=== PATIENT | female | born 1990 ===

== ENCOUNTER 2018-07-26 05:30 | Inpatient (IN) | payer BC ==
[2018-07-26] MEDS ORDERED: Butorphanol Tartrate 1 MG/ML VIAL SLOW IVP PRN (05:55)
[2018-07-26] MEDS ORDERED: Lactated Ringer's 1,000 ML IV SCH (05:55)
[2018-07-26] MEDS ORDERED: Ondansetron HCl/PF 4 MG/2 ML Vial IVP PRN ×2 (05:55→15:14)
[2018-07-26] MEDS ORDERED: Promethazine HCl 25 MG/ML VIAL IM PRN ×2 (05:55→15:14)
[2018-07-26] MEDS ORDERED: Acetaminophen 500 MG TAB PO PRN (05:55)
[2018-07-26] MEDS ORDERED: Penicillin G Potassium 5 MILL.UNITS in Sodium Chloride 0.9% 100 ML IVPB SCH (06:00)
[2018-07-26] MEDS: Lactated Ringer's 1,000 ML IV SCH ×3 (06:08→22:43)
[2018-07-26 06:17] LABS: Hemoglobin 12.4 g/dL (12.0-16.0); Mean Corpuscular HGB CONC 36.3 g/dL (32.0-36.0); Mean Corpuscular Hemoglobin 31.9 pg (27.0-31.0); Mean Platelet Volume 8.9 fL (7.4-10.4); Platelet Count 149 thou/uL (130-400); Red Blood Cell (RBC) Count 3.89 mill/uL (4.20-5.40); White Blood Cell (WBC) Count 7.8 thou/uL (4.8-10.8)
[2018-07-26] MEDS: NS w/ Oxytocin 10 units 500 ML IVPB SCH ×2 (06:22→21:00)
[2018-07-26 06:57] LABS: HBSAg Index 0.19 S/CO (0-0.99); Hep B Surf Ag Non-Reactive S/CO (NonReactive); Syphilis Antibody Nonreactive (Nonreactive); Syphilis Antibody Index 0.04 S/CO (<1.00 Non-Reactive)
[2018-07-26] MEDS: Penicillin G 2.5 MILL.units 50 ML IVPB SCH ×4 (10:19→22:43)
[2018-07-26] MEDS ORDERED: Bupivacaine 0.5% 20 ML, fentaNYL Citrate/PF 400 MCG in Sodium Chloride 0.9% 72 ML EPIDURAL SCH (14:30)
[2018-07-26] MEDS ORDERED: DISCONTINUE ALL PREVIOUS NARCOTICS FS SCH (14:30)
[2018-07-26] MEDS ORDERED: Fentanyl 100 MCG/2 ML VIAL ONE (14:51)
[2018-07-26] MEDS ORDERED: Naloxone HCl 0.4 mg/ml Vial IVP PRN ×2 (15:14)
[2018-07-26] MEDS ORDERED: Acetaminophen 325 MG TAB PO PRN (15:14)
[2018-07-26] MEDS ORDERED: Eucerin (Mineral Oil/Petrolatum,White) 30 gm Jar TOP PRN (15:14)
[2018-07-26] MEDS ORDERED: diphenhydrAMINE 50 MG/ML VIAL IVP PRN (15:14)
[2018-07-26] MEDS ORDERED: ePHEDrine/0.9% NaCl/PF SYRINGE 50 mg/10 ml SLOW IVP PRN (15:14)
[2018-07-26] MEDS ORDERED: Lactated Ringer's 500 ML IV PRN (15:14)
[2018-07-26] MEDS ORDERED: Communication Order-Pharmacy FS SCH (15:15)
[2018-07-26] MEDS: fentaNYL Citrate/PF 400 MCG, Bupivacaine 0.5% 20 ML in Sodium Chloride 0.9% 72 ML EPIDURAL SCH (22:43)
[2018-07-27 02:15] VITALS: BMI 30.2
[2018-07-27] MEDS: Penicillin G 2.5 MILL.units 50 ML IVPB SCH ×3 (02:30→15:04)
[2018-07-27] MEDS: fentaNYL Citrate/PF 400 MCG, Bupivacaine 0.5% 20 ML in Sodium Chloride 0.9% 72 ML EPIDURAL SCH (05:40)
[2018-07-27] MEDS ORDERED: NS / Oxytocin 40 units/1000ml 1,000 ML ONE (07:52)
[2018-07-27] MEDS ORDERED: CEFAZOLIN/Water 2 GM/20 ML SYRINGE SLOW IVP SCH (10:00)
[2018-07-27] MEDS ORDERED: CEFAZOLIN/Water 2 GM/20 ML SYRINGE ONE (10:01)
[2018-07-27] MEDS ORDERED: Bicitra 30 ML UDCUP ONE (10:02)
[2018-07-27] MEDS ORDERED: Oxytocin 10 UNITS/ML VIAL ONE (10:05)
[2018-07-27] MEDS ORDERED: Ondansetron HCl/PF 4 MG/2 ML Vial ONE (10:05)
[2018-07-27] MEDS ORDERED: Morphine PF 1 MG/ML SYR ONE (10:05)
[2018-07-27] MEDS ORDERED: Lidocaine 2% PF Inj 2 ML VIAL ONE ×2 (10:08→11:11)
[2018-07-27] MEDS ORDERED: Eucerin (Mineral Oil/Petrolatum,White) 30 gm Jar TOP PRN (10:35)
[2018-07-27] MEDS ORDERED: Ondansetron HCl/PF 4 MG/2 ML Vial IVP PRN ×3 (10:35→11:42)
[2018-07-27] MEDS ORDERED: Naloxone HCl 0.4 mg/ml Vial IVP PRN ×2 (10:35)
[2018-07-27] MEDS ORDERED: Promethazine HCl 25 MG/ML VIAL IM PRN (10:35)
[2018-07-27] MEDS ORDERED: Promethazine HCl 25 MG SUPP PR PRN (10:35)
[2018-07-27] MEDS ORDERED: Meperidine HCl/PF 25 MG/ML VIAL SLOW IVP PRN (10:35)
[2018-07-27] MEDS ORDERED: Naloxone HCl 0.4 mg/ml Vial IV PRN (10:35)
[2018-07-27] MEDS ORDERED: diphenhydrAMINE 50 MG/ML VIAL IVP PRN (10:35)
[2018-07-27] MEDS ORDERED: Ketorolac Tromethamine 30 MG/ML VIAL IVP SCH (10:45)
[2018-07-27] MEDS ORDERED: Communication Order-Pharmacy FS SCH (10:45)
[2018-07-27] MEDS ORDERED: Bupivacaine/Epinephrine 0.5% 10 ML VIAL ONE (11:11)
--- NOTE | 2018-07-27 11:21 | OP ---
DATE OF PROCEDURE: 07/27/2018 LOCATION OF SERVICE: Labor and Delivery. MILK TESTER NOTE INDICATION: In brief, I was asked to participate in this patient's primary for failure to descend at second stage. PRINCIPAL SURGEON: Alma Dexter M.D. MILK TESTER: Aris High M.D. DESCRIPTION OF PROCEDURE: In brief, I was scrubbed in and participated in a primary low-transverse c esarean section, performed via Pfannenstiel skin incision. No complications were noted. Baby was vi gorous at . Baby was a female. There was a nuchal cord x1, which was reduced. NICU te am was present in the delivery suite/OR per protocol. No complications were noted. For the full det ails of the surgery, please turn to the operative note dated today and dictated by Dr. Dexter. In shey ef, I participated from skin incision all the way until fascial closure, which was closed by Dr. Moses Dexter. After fascial closure, I excused myself from the operating room participation.
[2018-07-27] MEDS: Lactated Ringer's 1,000 ML IV SCH ×3 (11:22→21:04)
[2018-07-27] MEDS ORDERED: diphenhydrAMINE 25 MG CAP PO PRN (11:42)
[2018-07-27] MEDS ORDERED: Lanolin Ointment 7 GM TUBE TOP PRN (11:42)
[2018-07-27] MEDS ORDERED: Adacel (T-DAP) 0.5 ML VIAL IM ONE (11:42)
[2018-07-27] MEDS ORDERED: Simethicone Chewable 80 MG TAB PO PRN (11:42)
[2018-07-27] MEDS ORDERED: NS / Oxytocin 40 units/1000ml 1,000 ML IV SCH (11:45)
[2018-07-27] MEDS: Ketorolac Tromethamine 30 MG/ML VIAL IVP PRN ×2 (14:24→20:55)
[2018-07-27] MEDS ORDERED: HYDROcodone/Acetaminophen 5/325 mg Tablet PO PRN (18:20)
[2018-07-28] MEDS: Ketorolac Tromethamine 30 MG/ML VIAL IVP PRN (04:14)
[2018-07-28] MEDS: Lactated Ringer's 1,000 ML IV SCH ×3 (05:58→20:24)
[2018-07-28] MEDS ORDERED: Prenatal Vitamin 1 TAB PO SCH (09:00)
[2018-07-28] MEDS: HYDROcodone/Acetaminophen 5/325 mg Tablet PO PRN ×3 (10:13→17:00)
[2018-07-28] MEDS: Ibuprofen 800 MG TAB PO SCH ×2 (13:54→21:37)
[2018-07-29] MEDS: Ibuprofen 800 MG TAB PO SCH (05:44)
[2018-07-29] MEDS: HYDROcodone/Acetaminophen 5/325 mg Tablet PO PRN (05:45)
[2018-07-29] MEDS: Lactated Ringer's 1,000 ML IV SCH (05:52)
[2018-07-29 13:28] VITALS: BP 110/57; TEMP 98.2
== END 2018-07-29 11:20 | disposition home or self-care (01) | DRG 766 ==
LOC: L&D 05:30 → 3SE 07-27 13:58
PROVIDERS: ADMIT Obstetrics & Gynecology; ATTEND Obstetrics & Gynecology
PROC: 10D00Z1 Extraction of Products of Conception, Low, Open Approach (ICD-10-PCS; principal; 2018-07-26)
DX: O69.81X0 Labor and delivery complicated by cord around neck, without compression, not applicable or unspecified (principal); Z3A.39 39 weeks gestation of pregnancy; Z37.0 Single live birth; O32.4XX0 Maternal care for high head at term, not applicable or unspecified; O76 Abnormality in fetal heart rate and rhythm complicating labor and delivery; O99.820 Streptococcus B carrier state complicating pregnancy
CPT/HCPCS: 36415; 51702; 85027; 86780; 86850; 86900; 86901; 87340; A4216; C1726; J1885; J2274; J2405; J2540; J2590; J3010; J3490; J7050